=== PATIENT | female | born 1990 | race Caucasian/White ===

== ENCOUNTER → 2018-10-23 | Outpatient (CLI) | payer BC ==
[~2018-10-23] MED LIST: HYDACE5 PO; Keflex500 MG PO; META800 PO; MIRENA BIRTH CONTROL; MULVITMINE; PHENA100 PO; PHENA200 PO; Pyridium100 MG PO; RXHYDACE PO; RXPHEN200 PO; SULTRIDS PO
[2018-10-25 14:12] LABS: HPV 16 Negative (Negative); HPV 18 Negative (Negative); HPV OTHER HR TYPES Negative (Negative)
== END ==
LOC: LAB SHORT 18:34 → LAB 18:34
PROVIDERS: Nurse Practitioner Family
DX: Z12.4 Encounter for screening for malignant neoplasm of cervix (principal)
CPT/HCPCS: 87624; G0145